=== PATIENT | male | born 1970 | race Caucasian/White ===

== ENCOUNTER 2017-11-15 19:57 | Emergency (ER) | payer SELFPAY ==
--- NOTE | 2017-11-15 20:08 | EDM.PDOC ---
ED HPI GENERAL MEDICAL PROBLEM - General Chief Complaint: Lower Extremity Injury/Pain Stated Complaint: PAIN LT LEG Time Seen by Provider: 11/15/17 20:03 - History of Present Illness INITIAL COMMENTS - FREE TEXT/NARRATIVE: HISTORY AND PHYSICAL: History of present illness: Patient's 47-year-old male with history coronary artery disease who presents with a concern of left ankle and foot pain this came on somewhat acutely and is quite significant per patient it's worse with any movement weightbearing and palpation he denies history of gout denies chest pain shortness of breath or any other concern Review of systems: As per history of present illness and below otherwise all systems reviewed and negative. Past medical history: As per history of present illness and as reviewed below otherwise noncontributory. Surgical history: As per history of present illness and as reviewed below otherwise noncontributory. Social history: No reported history of drug or alcohol abuse. Family history: As per history of present illness and as reviewed below otherwise noncontributory. Physical exam: HEENT: Atraumatic, normocephalic, pupils reactive, negative for conjunctival pallor or scleral icterus, mucous membranes moist, throat clear, neck supple, nontender, trachea midline. Lungs: Clear to auscultation, breath sounds equal bilaterally, chest nontender. Heart: S1S2, regular, negative for clicks, rubs, or JVD. Abdomen: Soft, nondistended, nontender. Negative for masses or hepatosplenomegaly. Negative for costovertebral tenderness. Pelvis: Stable nontender. Genitourinary: Deferred. Rectal: Deferred. Extremities: Patient has pain to palpation of his left ankle and forefoot he has difficulty weightbearing due to the discomfort CMS neurovascular is unremarkable Neuro: Awake, alert, oriented. Cranial nerves II through XII unremarkable. Cerebellum unremarkable. Motor and sensory unremarkable throughout. Exam nonfocal. Diagnostics: CBC CMP uric acid x-ray left ankle Therapeutics: To be determined Impression: #1 left ankle pain probable gouty arthritis #2 history of coronary artery disease Definitive disposition and diagnosis as appropriate pending reevaluation and review of above. - Related Data Allergies Allergy/AdvReac Type Severity Reaction Status Date / Time No Known Allergies Allergy Verified 11/15/17 20:09 Home Meds: Home Meds . [No Known Home Meds] 05/05/16 [History] Past Medical History Cardiovascular History: Reports: MD, Stents Other Cardiovascular History: previous MD 2010, stents x 2, anticoag therapy for 1 yr after. - Past Surgical History Cardiovascular Surgical History: Reports: Carotid Stents Social & Family History - Family History Cardiac: Reports: MD Endocrine/Metabolic: Reports: Diabetes, type II - Tobacco Use Smoking Status *Q: Never Smoker - Recreational Drug Use Recreational Drug Use: No Review of Systems - Review of Systems Review Of Systems: ROS reveals no pertinent complaints other than HPI. ED EXAM, GENERAL - Physical Exam Exam: See Below (See dictation) Course - Vital Signs Last Recorded V/S: Last Vital Signs Temp 36.1 C 11/15/17 20:10 Pulse 90 11/15/17 20:10 Resp 18 11/15/17 20:10 BP 138/82 11/15/17 20:10 Pulse Ox 98 11/15/17 20:10 - Orders/Labs/Meds Orders: Active Orders 24 hr Category Date Time Status Ankle Min 3V Lt [CR] Stat Exams 11/15/17 20:09 Taken Labs: Laboratory Tests 11/15/17 11/15/17 Range/Units 20:10 20:10 WBC 8.33 (4.0-11.0) K/uL RBC 4.08 L (4.50-5.90) M/uL Hgb 12.8 L (13.0-17.0) g/dL Hct 38.3 (38.0-50.0) % MCV 93.9 (80.0-98.0) fL MCH 31.4 (27.0-32.0) pg MCHC 33.4 (31.0-37.0) g/dL RDW Std Deviation 43.3 (28.0-62.0) fl RDW Coeff of Izabel 13 (11.0-15.0) % Plt Count 254 (150-400) K/uL MPV 10.40 (7.40-12.00) fL Neut % (Auto) 63.2 (48.0-80.0) % Lymph % (Auto) 25.6 (16.0-40.0) % [place] % (Auto) 8.6 (0.0-15.0) % Eos % (Auto) 2.2 (0.0-7.0) % Baso % (Auto) 0.4 (0.0-1.5) % Neut # (Auto) 5.3 (1.4-5.7) K/uL Lymph # (Auto) 2.1 (0.6-2.4) K/uL [place] # (Auto) 0.7 (0.0-0.8) K/uL Eos # (Auto) 0.2 (0.0-0.7) K/uL Baso # (Auto) 0.0 (0.0-0.1) K/uL Nucleated RBC % 0.0 /100WBC Nucleated RBCs # 0 K/uL Sodium 140 (136-146) mmol/L Potassium 4.4 (3.5-5.1) mmol/L Chloride 106 (98-110) mmol/L Carbon Dioxide 25 (21-31) mmol/L BUN 25 H (6.0-23.0) mg/dL Creatinine 1.8 H (0.6-1.5) mg/dL Est Cr Clr Drug Dosing 55.69 mL/min Estimated GFR (MDRD) 40.6 ml/min Glucose 133 H (60-110) mg/dL Uric Acid 9.6 H (2.1-7.4) mg/dL Calcium 9.5 (8.8-10.8) mg/dL Total Bilirubin 0.6 (0.1-1.5) mg/dL AST 16 (5-40) IU/L ALT 18 (8-54) IU/L Alkaline Phosphatase 101 (40-150) Total Protein 8.6 H (6.0-8.0) g/dL Albumin 4.7 (3.5-5.0) g/dL Globulin 3.9 H (2.0-3.5) g/dL Albumin/Globulin Ratio 1.2 L (1.3-2.8) Departure - Departure Time of Disposition: 21:09 Disposition: Home, Self-Care 01 Condition: Good Clinical Impression: Gout attack - Discharge Information Referrals: PCP,None [Primary Care Provider] - Forms: ED Department Discharge Additional Instructions: The following information is given to patients seen in the emergency department who are being discharged to home. This information is to outline your options for follow-up care. We provide all patients seen in our emergency department with a follow-up referral. The need for follow-up, as well as the timing and circumstances, are variable depending upon the specifics of your emergency department visit. If you don't have a primary care physician on staff, we will provide you with a referral. We always advise you to contact your personal physician following an emergency department visit to inform them of the circumstance of the visit and for follow-up with them and/or the need for any referrals to a consulting specialist. The emergency department will also refer you to a specialist when appropriate. This referral assures that you have the opportunity for followup care with a specialist. All of these measure are taken in an effort to provide you with optimal care, which includes your followup. Under all circumstances we always encourage you to contact your private physician who remains a resource for coordinating your care. When calling for followup care, please make the office aware that this follow-up is from your recent emergency room visit. If for any reason you are refused follow-up, please contact the [facility] emergency department at and asked to speak to the emergency department charge nurse. [facility] [address], [address] [place] [address] Indomethacin as prescribed although schedule routine appointment with orthopedic clinic above return as needed as discussed - My Orders Last 24 Hours: My Active Orders 11/15/17 20:09 Ankle Min 3V Lt [CR] Stat - Assessment/Plan Last 24 Hours: My Active Orders 11/15/17 20:09 Ankle Min 3V Lt [CR] Stat
[2017-11-15 21:53] VITALS: BP 117/72
--- NOTE | 2017-11-16 14:25 | CR ---
EXAM DATE: 11/15/17 PATIENT'S AGE: 47 Patient: MONET ISRAEL Facility: [place], [place] Site . Site : [id number] Study: XRay Extremity Left Ankle [id number]/20/2018 8:24:58 PM Ordering Physician: Renu Blanco Final Report: INDICATION: Pain for more than 10 days,edema, TECHNIQUE: 3 views of the left ankle COMPARISON: None FINDINGS: Bones: Enthesophyte along Achilles tendon insertion to the calcaneus. No fractures or bone lesions. Joint spaces: Degenerative changes. Soft tissues: Atherosclerotic disease. IMPRESSION: No acute bony abnormality. Dictated by Zander Qureshi MD @ 11/15/2017 8:28:53 PM Dictated by: Zander Qureshi MD @ 11/15/2017 20:29:05 (Electronic Signature) Report Signed by Proxy. [facility] CENTERDeondre
== END 2017-11-15 21:15 | disposition home or self-care (01) ==
LOC: MW.ED 19:57
DX: M10.9 Gout, unspecified (principal); I25.10 Atherosclerotic heart disease of native coronary artery without angina pectoris; Z95.5 Presence of coronary angioplasty implant and graft; Z79.01 Long term (current) use of anticoagulants
CPT/HCPCS: 36415; 73610-26-LT; 73610-LT; 80053; 84550; 85025; 99283